=== PATIENT | male | born 2000 | race Caucasian/White ===

== ENCOUNTER 2022-09-08 11:00 | Emergency (ER) | payer OTHER ==
[~2022-09-08] VITALS: Ht 182.9 cm; Wt 120.6 kg
[2022-09-08 11:05] VITALS: BP 124/102
[2022-09-08] MEDS ORDERED: ERY05OO OP (12:58)
[2022-09-08] MEDS ORDERED: PROM1SOL4 PO (12:58)
== END 2022-09-08 13:24 | disposition home or self-care (01) ==
LOC: ER 11:00
DX: B30.9 Viral conjunctivitis, unspecified (principal)